=== PATIENT | female | born 1965 | race Caucasian/White ===

== ENCOUNTER 2018-03-15 08:06 | Outpatient (CLI) | payer BC | END 2018-03-15 08:07 | disposition home or self-care (01) | LOC: BICMAMMO 08:06 | PROVIDERS: ATTEND Internal Medicine | DX: Z12.31 Encounter for screening mammogram for malignant neoplasm of breast (principal); Z85.89 Personal history of malignant neoplasm of other organs and systems; Z80.3 Family history of malignant neoplasm of breast | CPT/HCPCS: 77063; 77067 ==

== ENCOUNTER 2019-03-18 09:36 | Outpatient (CLI) | payer BC ==
--- NOTE | 2019-03-18 10:11 | BD ---
EXAM: DEXA bone density examination HISTORY: 53-year-old postmenopausal female for screening COMPARISON: 01/05/2007 FINDINGS: L1--bone mineral density 0.890 g/sq cm; T score -0.9 L2--bone mineral density 0.887 g/sq cm; T score -1.3 L3--bone mineral density 0.920 g/sq cm; T score -1.5 L4--bone mineral density 0.994 g/sq cm; T score -0.6 Total L1-L4--bone mineral density 0.923 g/sq cm; T score -1.1 Left femoral neck--bone mineral density0.734; T score -1.0 Total proximal left femur--bone mineral density 0.888; T score -0.4 IMPRESSION: Osteopenia This patient has a 10 year WHO fracture risk of a major osteoporotic fracture of 2.8% and of a hip fracture of 0.1%.
--- NOTE | 2019-03-18 10:49 | MMO ---
Bilateral MAMMO Bilat Screen [facility]. CLINICAL HISTORY: Patient is 53 years old and is seen for screening. The patient has the following family history of breast cancer: maternal aunt, at age 55, malignant (generic). The patient has a history of gi cancer in 2002. VIEWS: The views performed were: bilateral craniocaudal with tomosynthesis and bilateral mediolateral oblique with tomosynthesis. FILMS COMPARED: The present examination has been compared to prior imaging studies performed at [facility] on 03/09/2015, 03/11/2016, 03/13/2017 and 03/15/2018. MAMMOGRAM FINDINGS: The breasts are heterogeneously dense, which could obscure a lesion on mammography. There are no suspicious masses, suspicious calcifications, or new areas of architectural distortion. IMPRESSION: THERE IS NO MAMMOGRAPHIC EVIDENCE OF MALIGNANCY. A ROUTINE FOLLOW-UP MAMMOGRAM IN 1 YEAR IS RECOMMENDED. THE RESULTS OF THIS EXAM WERE SENT TO THE PATIENT. ACR BI-RADS Category 1 - Negative MAMMOGRAPHY NOTE: 1. A negative mammogram report should not delay a biopsy if a dominant of clinically suspicious mass is present. 2. Approximately 10% to 15% of breast cancers are not detected by mammography. 3. Adenosis and dense breasts may obscure an underlying neoplasm. Reported by: Sonia KAISER Electon[employer] Signed: [id number]
== END 2019-03-18 09:37 | disposition home or self-care (01) ==
LOC: BICMAMMO 09:36
PROVIDERS: ATTEND Internal Medicine
DX: Z12.31 Encounter for screening mammogram for malignant neoplasm of breast (principal); M85.89 Other specified disorders of bone density and structure, multiple sites; Z80.3 Family history of malignant neoplasm of breast; Z85.00 Personal history of malignant neoplasm of unspecified digestive organ
CPT/HCPCS: 77063; 77067; 77080